=== PATIENT | female | born 1985 | race American Indian/Alaskan Native ===

== ENCOUNTER 2021-08-08 03:10 | Emergency (ER) | payer MEDICAID ==
[2021-08-08 04:00] VITALS: BP 140/78
--- NOTE | 2021-08-08 05:34 | Emergency Department Report ---
ED Eye Problem HPI - General Chief complaint: Eye Problems Stated complaint: CANT SEE OUT LT EYE VERY PAINFUL X 1DAY Source: patient Mode of arrival: Ambulatory Limitations: No Limitations - History of Present Illness Initial comments: Patient is a 35-year-old -[place] female with no past medical history except morbid obesity who presents to the ED with complaint of acute onset persistent itchy erythematous painful left eye with purulent discharge and matting for the last 2 days. Patient states that she has been using [id number] eyedrops with no relief. Patient states that in the last 8 hours she has not been able to sleep because of persistent left eye pain. Patient denies fever, chills, nasal and sinus congestion, headache, traumatic injury, cough, sore throat, nausea and vomiting, shortness of breath or cough. MD chief complaint: eye pain (Left eye pain, discharge and itching), eye redness (Left eye), vision change (Blurry vision in the left eye) -: Sudden, days(s) (2) Onset Description: sudden Location: left eye Place: home If Injury: none Eye Symptoms: burning, redness, pain, foreign body sensation, itching, discharge, photophobia Severity: moderate Severity scale (0 -10): 5 If Pain, Quality: sharp, aching Consistency: constant Associated Symptoms: none. denies: headache, neck pain, nausea/vomiting, cough, rhinorrhea, fever, shortness of breath Treatments Prior to Arrival: OTC eye drops - Related Data Previous Rx's Medication Instructions Recorded Last Taken Type Acetaminophen [Tylenol] 500 mg PO Q6HR PRN #30 tablet 08/08/21 Unknown Rx Tobramycin 0.3% [Tobrex] 1 drop OP Q8HR #5 ml 08/08/21 Unknown Rx Allergies Allergy/AdvReac Type Severity Reaction Status Date / Time No Known Allergies Allergy Unverified 08/08/21 03:56 ED Review of Systems ROS: Stated complaint: CANT SEE OUT LT EYE VERY PAINFUL X 1DAY Other details as noted in HPI Constitutional: denies: chills, fever Eyes: eye pain (Left eye pain), eye discharge (Left eye). denies: vision change ENT: denies: ear pain, throat pain Respiratory: denies: cough, shortness of breath, wheezing Cardiovascular: denies: chest pain, palpitations Endocrine: no symptoms reported Gastrointestinal: denies: abdominal pain, nausea, diarrhea Genitourinary: denies: urgency, dysuria, discharge Musculoskeletal: denies: back pain, joint swelling, arthralgia Skin: denies: rash, lesions Neurological: denies: headache, weakness, paresthesias Psychiatric: denies: anxiety, depression Hematological/Lymphatic: denies: easy bleeding, easy bruising ED Past Medical Hx - Past Medical History Previous Medical History?: No - Surgical History Past Surgical History?: No - Medications Home Medications: Home Medications Medication Instructions Recorded Confirmed Last Taken Type Acetaminophen [Tylenol] 500 mg PO Q6HR PRN #30 tablet 08/08/21 Unknown Rx Tobramycin 0.3% [Tobrex] 1 drop OP Q8HR #5 ml 08/08/21 Unknown Rx ED Physical Exam - General Limitations: No Limitations General appearance: alert, in no apparent distress - Head Head exam: Present: atraumatic, normocephalic, normal inspection - Eye Eye exam: Present: normal appearance, PERRL, EOMI, other (Mild erythematous left conjunctiva with purulent discharge and matting) Pupils: Present: normal accommodation - ENT ENT exam: Present: normal exam, normal orophraynx, mucous membranes moist, TM's normal bilaterally, normal external ear exam - Neck Neck exam: Present: normal inspection, full ROM - Respiratory Respiratory exam: Present: normal lung sounds bilaterally. Absent: respiratory distress, wheezes, rales, stridor, chest wall tenderness, accessory muscle use, decreased breath sounds, prolonged expiratory - Cardiovascular Cardiovascular Exam: Present: regular rate, normal rhythm, normal heart sounds. Absent: systolic murmur, diastolic murmur, rubs, gallop - GI/Abdominal GI/Abdominal exam: Present: soft, normal bowel sounds. Absent: distended, tenderness, guarding, rebound, hyperactive bowel sounds, hypoactive bowel sounds, organomegaly - Extremities Exam Extremities exam: Present: normal inspection, full ROM, normal capillary refill - Back Exam Back exam: Present: normal inspection, full ROM. Absent: tenderness, CVA tenderness (R), CVA tenderness (L), muscle spasm, paraspinal tenderness, vertebral tenderness - Neurological Exam Neurological exam: Present: alert, oriented X3, CN II-XII intact, normal gait, reflexes normal - Psychiatric Psychiatric exam: Present: normal affect, normal mood - Skin Skin exam: Present: warm, dry, intact, normal color. Absent: rash ED Course Vital Signs 08/08/21 03:58 Temperature 98.6 F Pulse Rate 81 Respiratory 18 Rate Blood Pressure 140/78 [Right] O2 Sat by Pulse 98 Oximetry ED Medical Decision Making - Medical Decision Making This is a 35-year-old -[place] female with no past medical history except morbid obesity who presents to the ED with complaint of acute onset persistent itchy erythematous painful left eye with purulent discharge and matting for the last 2 days. Patient states that she has been using [id number] eyedrops with no relief. Patient states that in the last 8 hours she has not been able to sleep because of persistent left eye pain. In the ED, patient is alert and oriented x3 and is not in any distress. Based on the history and physical exam findings, the patient symptoms are likely due to conjunctivitis of the left eye. Patient was therefore discharged home on medications and advised to follow-up with her primary care physician in 5 to 7 days for reevaluation or return to the ED immediately if symptoms get worse. - Differential Diagnosis Keratitis; conjunctivitis; eye injury Critical care attestation.: If time is entered above; I have spent that time in minutes in the direct care of this critically ill patient, excluding procedure time. ED Disposition Clinical Impression: Acute pain in left eye Acute conjunctivitis of left eye Qualifiers: Acute conjunctivitis type: unspecified Qualified Code(s): H10.32 - Unspecified acute conjunctivitis, left eye Disposition: 01 HOME / SELF CARE / HOMELESS Is pt being admited?: No Does the pt Need Aspirin: No Condition: Stable Instructions: Bacterial Conjunctivitis, Adult, [id number] Additional Instructions: Apply the eyedrops to the affected eye as advised, take pain medication as needed with food, and follow-up with your primary care physician in 5 to 7 days for reevaluation. Return to the ED immediately if symptoms get worse. Prescriptions: Acetaminophen [Tylenol] 500 mg PO Q6HR PRN #30 tablet PRN Reason: Pain , Severe (7-10) Tobramycin 0.3% [Tobrex] 1 drop OP Q8HR #5 ml Referrals: [facility] [Provider Group] - 3-5 Days Time of Disposition: 05:35 Print Language: SAUDI ARABIAN
== END 2021-08-08 06:19 | disposition home or self-care (01) ==
LOC: ED 03:10
DX: H57.12 Ocular pain, left eye (principal); H10.32 Unspecified acute conjunctivitis, left eye
CPT/HCPCS: 99282